=== PATIENT | female | born 1975 | race Hispanic/Latino ===

== ENCOUNTER 2017-06-25 16:41 | Outpatient (CLI) | payer BC | END 2017-06-25 16:42 | disposition home or self-care (01) | LOC: BICMAMMO 16:41 | PROVIDERS: ATTEND Family Medicine | DX: Z12.31 Encounter for screening mammogram for malignant neoplasm of breast (principal) | CPT/HCPCS: 77063; 77067 ==

== ENCOUNTER 2017-07-20 14:44 | Outpatient (CLI) | payer BC | END 2017-07-20 14:45 | disposition home or self-care (01) | LOC: BICULT 14:44 | PROVIDERS: ATTEND Family Medicine | DX: R10.32 Left lower quadrant pain (principal); R39.89 Other symptoms and signs involving the genitourinary system; R19.09 Other intra-abdominal and pelvic swelling, mass and lump | CPT/HCPCS: 76856 ==

== ENCOUNTER 2022-03-11 15:29 | Outpatient (CLI) | payer BC | END 2022-03-11 15:30 | disposition home or self-care (01) | LOC: BICMAMMO 15:29 | PROVIDERS: ATTEND Family Medicine | DX: Z12.31 Encounter for screening mammogram for malignant neoplasm of breast (principal); M25.561 Pain in right knee | CPT/HCPCS: 77063; 77067 ==